=== PATIENT | male | born 1980 | race Caucasian/White ===

== ENCOUNTER → 2020-10-29 08:32 | Outpatient (BNVA) | payer BC, SELFPAY | PROVIDERS: Family Provider Family Medicine; PCP Internal Medicine; Referring Provider Family Medicine; Visit Provider Podiatrist Foot & Ankle Surgery | DX: M79.673 Pain in unspecified foot (principal); M77.41 Metatarsalgia, right foot; M77.42 Metatarsalgia, left foot | CPT/HCPCS: 73630 ==

== ENCOUNTER 2020-11-13 08:38 | Outpatient (CLI) | payer BC, SELFPAY ==
--- NOTE | 2020-11-13 08:45 | US_ITS ---
WS: [id number] ULTRASOUND SOFT TISSUES RIGHT foot. HISTORY: foot pain COMPARISON: None available. TECHNIQUE: 2-D and color Doppler imaging is submitted. Very small hypoechoic nodule between the second and third metatarsal heads. This measures 2 x 3 x 3 m m. Very small in appearance and could represent a very tiny neuroma. No adjacent fluid. US/US soft tissue/extremity [id number] IMPRESSION: Possible 3 mm Johnson's neuroma between the second and third metatarsal heads. V kellen small and nonspecific in appearance.
== END 2020-11-13 08:39 | disposition home or self-care (01) ==
PROVIDERS: PCP Family Medicine; Visit Provider Podiatrist Foot & Ankle Surgery
DX: M79.671 Pain in right foot (principal)
CPT/HCPCS: 76882